=== PATIENT | male | born 1955 | race Caucasian/White ===

== ENCOUNTER 2023-12-29 06:06 | Day surgery (SDC) | payer MEDICARE ==
[~2023-12-29] VITALS: Ht 177.8 cm; Wt 85.5 kg
[2023-12-29] VITALS (8 sets, daily range): BP systolic 102–130; BP diastolic 71–82; TEMP 96.3–98.6; O2SAT 93–96
[~2023-12-29 06:06] MED LIST: CHOL125C6 PO; FLOM0.4C39 PO; OMEP40CA5 PO; ROSU40TA63 PO; SILD100T PO
[2023-12-29] MEDS ORDERED: LIDOCAINE 2% INJ 100 MG/5 ML SYRINGE As Ordered ONE (07:11)
[2023-12-29] MEDS ORDERED: propofoL 200 MG/20 ML VIAL As Ordered ONE (07:11)
[2023-12-29] MEDS ORDERED: fentaNYL 100 MCG/2 ML INJECTION As Ordered ONE (07:11)
[2023-12-29] MEDS ORDERED: KETOROLAC 60MG 2ML VIAL As Ordered ONE (07:11)
[2023-12-29] MEDS ORDERED: ROCURONIUM BROMIDE 50MG/5ML VIAL As Ordered ONE (07:11)
[2023-12-29] MEDS ORDERED: ONDANSETRON 4MG 2ML VIAL As Ordered ONE (07:11)
[2023-12-29] MEDS ORDERED: PERCOCET 5MG/325MG TAB PO PRN (07:15)
[2023-12-29] MEDS ORDERED: ONDANSETRON 4MG 2ML VIAL IV PRN ×2 (07:15→11:50)
[2023-12-29] MEDS: LIDOCAINE 1% SDV 30ML VIAL As Ordered ONE (07:35)
[2023-12-29] MEDS: ceFAZolin SOD 2 GM in IV 1 EA IV ONE (08:00)
[2023-12-29] MEDS: HEPARIN SOD (PORCINE) 5000UNITS/ML 1ML VIAL/SYRINGE SC SCH (08:00)
[2023-12-29] MEDS: HEPARIN SOD (PORCINE) 5000UNITS/ML 1ML VIAL/SYRINGE SQ ONE (08:00)
[2023-12-29] MEDS ORDERED: SUGAMMADEX SODIUM 500 MG/5 ML VIAL (BRIDION) As Ordered ONE (11:11)
[2023-12-29] MEDS ORDERED: dexmedeTOMIDine (4MCG/ML)200MCG/50ML BTL (PRECEDEX) As Ordered ONE (11:45)
[2023-12-29] MEDS ORDERED: fentaNYL 100 MCG/2 ML INJECTION IV PRN (11:50)
[2023-12-29] MEDS ORDERED: oxyCODONE 5MG TAB PO PRN (11:50)
[2023-12-29] MEDS ORDERED: HYDROMORPHONE HCL 0.5 MG/ 0.5 ML SYRINGE IV PRN (11:50)
[2023-12-29 13:06] LABS: HEMATOCRIT 34.7 % (42.0-52.0); HEMOGLOBIN 11.2 g/dl (13.5-17.5); MEAN CORPUSCULAR HEMOGLOBIN 27.5 pg (27.0-33.0); MEAN CORPUSCULAR HGB CONC 32.3 g/dl (32.0-36.5); PLATELET COUNT, AUTOMATED 276 10^3/uL (150-450); RED BLOOD COUNT 4.08 10^6/uL (4.30-6.10); WHITE BLOOD COUNT 16.7 10^3/uL (4.0-10.0)
[2023-12-29 13:38] LABS: BLOOD UREA NITROGEN 15 MG/DL (9-23); CALCIUM LEVEL 8.4 MG/DL (8.3-10.6); CARBON DIOXIDE LEVEL 23 MMOL/L (20-31); CHLORIDE LEVEL 106 MMOL/L (98-107); GLOMERULAR FILTRATION RATE > 60.0 (>49); GLUCOSE, FASTING 166 MG/DL (74-106); POTASSIUM SERUM 4.2 MMOL/L (3.5-5.1); SODIUM LEVEL 138 MMOL/L (136-145)
[2023-12-29] MEDS: LR 1,000 ML IV SCH ×2 (13:44→13:55)
[2023-12-29] MEDS: NS 1,000 ML IV SCH (13:44)
[2023-12-29] MEDS: PERCOCET 5MG/325MG TAB PO PRN (14:42)
[2023-12-29] MEDS ORDERED: OMEP40CA4 PO (15:16)
[2023-12-29] MEDS ORDERED: ROSU5TAB40 PO (15:16)
[2023-12-29] MEDS ORDERED: HOME MED LIST COMPLETE! XX SCH (15:20)
[2023-12-29] MEDS ORDERED: PILL CUTTER 1 EACH XX PRN (16:25)
[2023-12-29] MEDS: ceFAZolin SOD 1 GM in D5W MINI-BAG PLUS 50 ML IV SCH (16:27)
[2023-12-29] MEDS: ROSUVASTATIN 10 MG TAB (CRESTOR) PO SCH (20:08)
[2023-12-29] MEDS: DOCUSATE SODIUM 100MG CAPSULE PO SCH (20:08)
[2023-12-29] MEDS: ACETAMINOPHEN TAB 650MG DOSE (2X325MG) PO PRN (20:09)
[2023-12-30 02:00] VITALS: BP 111/63; TEMP 98.1; O2SAT 94
[2023-12-30 05:49] VITALS: BP 110/65; TEMP 97.2; O2SAT 92
[2023-12-30 07:09] LABS: HEMATOCRIT 28.2 % (42.0-52.0); MEAN CORPUSCULAR HEMOGLOBIN 27.2 pg (27.0-33.0); MEAN CORPUSCULAR HGB CONC 32.3 g/dl (32.0-36.5); MEAN CORPUSCULAR VOLUME 84.4 fl (80.0-96.0); PLATELET COUNT, AUTOMATED 234 10^3/uL (150-450); RED BLOOD COUNT 3.34 10^6/uL (4.30-6.10); WHITE BLOOD COUNT 9.8 10^3/uL (4.0-10.0)
[2023-12-30 07:10] LABS: HEMOGLOBIN 9.1 g/dl (13.5-17.5)
[2023-12-30 07:36] LABS: BLOOD UREA NITROGEN 12 MG/DL (9-23); CALCIUM LEVEL 8.2 MG/DL (8.3-10.6); CARBON DIOXIDE LEVEL 25 MMOL/L (20-31); CHLORIDE LEVEL 108 MMOL/L (98-107); CREATININE FOR GFR 1.03 MG/DL (0.70-1.30); GLOMERULAR FILTRATION RATE > 60.0 (>49); GLUCOSE, FASTING 104 MG/DL (74-106); POTASSIUM SERUM 3.9 MMOL/L (3.5-5.1); SODIUM LEVEL 139 MMOL/L (136-145)
[2023-12-30] MEDS: OMEPRAZOLE 20MG CAP PO SCH (08:11)
[2023-12-30 10:20] VITALS: BP 109/66; TEMP 98.1; O2SAT 96
[2023-12-30 12:04] LABS: HEMATOCRIT 29.8 % (42.0-52.0); HEMOGLOBIN 9.7 g/dl (13.5-17.5)
[2023-12-30] MEDS ORDERED: COLA100C5 PO (12:53)
[2023-12-30] MEDS ORDERED: CIPR-249 PO (12:53)
[2023-12-30] MEDS ORDERED: PERCOCET PO (12:53)
[2023-12-30 13:30] VITALS: BP 117/74; TEMP 97.4; O2SAT 95
== END 2023-12-30 14:45 | disposition home or self-care (01) ==
LOC: UNDOADMIN 06:06 → M OR 06:06 → M SDC 06:06 → EDSTATUS 07:30 → M OR 13:55 → M MS5PR 13:55 → M SDC 12-30 14:45 → UNDODISIN 12-30 14:45
PROVIDERS: ATTEND Urology
DX: C61 Malignant neoplasm of prostate (principal); E78.5 Hyperlipidemia, unspecified; K22.70 Barrett's esophagus without dysplasia; K21.9 Gastro-esophageal reflux disease without esophagitis; Z79.899 Other long term (current) drug therapy
CPT/HCPCS: 36415; 55866; 80048; 85014; 85018; 85027; 86850; 86900; 86901; 88309; 96361; 96365; 96366; 96372; J0665; J0690; J1100; J1885; J2405; J3010; S2900

== ENCOUNTER → 2024-02-09 | Outpatient (CLI) | payer MEDICARE ==
[~2024-02-09] MED LIST changes: +CIPR-249 PO; +COLA100C5 PO; +OMEP40CA4 PO; +PERCOCET PO; +ROSU5TAB40 PO
== END ==
LOC: M PLALAB 15:51
PROVIDERS: ATTEND Urology
DX: C61 Malignant neoplasm of prostate (principal)